=== PATIENT | female | born 1935 | race Caucasian/White ===

== ENCOUNTER 2016-10-03 17:11 | Emergency (ER) | payer MEDICARE, BC ==
[~2016-10-03] VITALS: Ht 170.2 cm; Wt 68.2 kg
[2016-10-03 17:12] VITALS: TEMP 99.8
[2016-10-03 17:56] LABS: HEMATOCRIT 40.7 % (37.0-47.0); HEMOGLOBIN 13.8 g/dl (12.5-16.0); MEAN CELL VOLUME 95 fl (80.0-100.0); MEAN CORPUSCULAR HEMOGLOBIN 32 pg (27.0-31.0); MEAN CORPUSCULAR HGB CONC 34 g/dl (33.0-37.0); MEAN PLATELET VOLUME 9.2 fl (7.4-10.4); PLATELET COUNT 143 K/mm3 (130-400); RED BLOOD COUNT 4.29 M/mm3 (4.10-5.30); REDCELL DISTRIBUTION WIDTH-CV 13.8 % (11.5-14.5); WHITE BLOOD COUNT 8.7 K/mm3 (4.8-10.8)
[2016-10-03 17:57] LABS: ADD PATHOLOGY DIFF REVIEW NO
[2016-10-03 18:06] LABS: PH 5 (5-8); URINE APPEARANCE Cloudy; URINE BACTERIA Rare /hpf; URINE BILIRUBIN Negative (NEGATIVE); URINE BLOOD 1+ (NEGATIVE); URINE COLOR Amber; URINE GLUCOSE Negative (NEGATIVE); URINE KETONE Negative (NEGATIVE); URINE UROBILINOGEN Negative (NEGATIVE)
[2016-10-03 18:10] LABS: URINE WBC >50 /hpf
[2016-10-03 18:10] LABS: PARTIAL THROMBOPLASTIN TIME 27.1 SECONDS (26.0-37.0)
[2016-10-03 18:11] LABS: INR 1.1 (0.8-3.0)
[2016-10-03 18:12] LABS: PROTHROMBIN TIME 11.7 SECONDS (9.7-12.8)
[2016-10-03 18:21] LABS: TROPONIN-I 0.018 ng/mL (0.000-0.034)
[2016-10-03 18:55] LABS: BAND 33 % (0-10); NEUTROPHILS 50 % (42.0-75.2); PLATELET ESTIMATE NORMAL (NORMAL); TOTAL CELLS COUNTED 100
[2016-10-03] MEDS ORDERED: ASPIRIN 81M81 MG/TA2 PO (19:13)
[2016-10-03] MEDS ORDERED: PLAVIX 75MG TAB75 MG PO (19:14)
[2016-10-03] MEDS ORDERED: PROTONIX 40MG T40 MG PO (19:14)
[2016-10-03] MEDS ORDERED: ARIMIDEX1 MG PO (19:14)
[2016-10-03] MEDS ORDERED: LIPITOR 80MG80 MG PO (19:14)
[2016-10-03] MEDS ORDERED: LOPRESSOR 550 MG/TAB PO (19:15)
[2016-10-03] MEDS ORDERED: CALCIUM 600MG+D1 TAB PO (19:15)
[2016-10-03] MEDS ORDERED: MULTI VITAMINS1 TAB PO (19:16)
[2016-10-03] MEDS ORDERED: OMEGA-3 1000 MG1 CAP PO (19:16)
[2016-10-03 20:19] LABS: TROPONIN-I 0.018 ng/mL (0.000-0.034)
[2016-10-03 20:21] LABS: ADJUSTED CALCIUM 9.1 mg/dL (8.4-10.2); ALBUMIN 4.1 gm/dL (3.5-5.0); BILIRUBIN,TOTAL 1.3 mg/dL (0.0-1.0); CALCIUM 9.2 mg/dL (8.4-10.2); CREATININE, serum 0.83 mg/dL (0.52-1.25); POTASSIUM 4.2 mmol/L (3.4-5.0); TOTAL PROTEIN 7.4 gm/dL (6.4-8.2)
[2016-10-03] MEDS ORDERED: CIPRO 500MG TA500 MG PO (20:33)
[2016-10-03 20:40] VITALS: BP 145/84; PULSE 79
== END 2016-10-03 20:44 | disposition home or self-care (01) ==
LOC: COL.ER 17:11
PROVIDERS: Emergency Medicine
DX: N39.0 Urinary tract infection, site not specified (principal); G45.9 Transient cerebral ischemic attack, unspecified; R79.89 Other specified abnormal findings of blood chemistry; I10 Essential (primary) hypertension; I25.10 Atherosclerotic heart disease of native coronary artery without angina pectoris; I25.2 Old myocardial infarction; R05 Cough; I69.351 Hemiplegia and hemiparesis following cerebral infarction affecting right dominant side
CPT/HCPCS: J0696; J1940; J7030

== ENCOUNTER 2016-10-03 21:43 | Inpatient (IN) | payer MEDICARE, BC ==
[~2016-10-03] VITALS: Ht 172.7 cm; Wt 62.8 kg
[~2016-10-03 21:43] MED LIST: ARIMIDEX1 MG PO; ASPIRIN 81M81 MG/TA2 PO; CALCIUM 600MG+D1 TAB PO; CIPRO 500MG TA500 MG PO; LIPITOR 80MG80 MG PO; LOPRESSOR 550 MG/TAB PO; MULTI VITAMINS1 TAB PO; OMEGA-3 1000 MG1 CAP PO; PLAVIX 75MG TAB75 MG PO; PROTONIX 40MG T40 MG PO
[2016-10-03 22:54] VITALS: BP 136/55; PULSE 75
[2016-10-04] VITALS (8 sets, daily range): BP systolic 86–123; BP diastolic 48–69; PULSE 47–75; TEMP 97.4–100.3
[2016-10-04 04:26] LABS: HEMOGLOBIN 12.6 g/dl (12.5-16.0); MEAN CELL VOLUME 93 fl (80.0-100.0); MEAN CORPUSCULAR HEMOGLOBIN 32 pg (27.0-31.0); MEAN CORPUSCULAR HGB CONC 35 g/dl (33.0-37.0); MEAN PLATELET VOLUME 9.2 fl (7.4-10.4); PLATELET COUNT 122 K/mm3 (130-400); RED BLOOD COUNT 3.94 M/mm3 (4.10-5.30); REDCELL DISTRIBUTION WIDTH-CV 13.5 % (11.5-14.5); WHITE BLOOD COUNT 8.3 K/mm3 (4.8-10.8)
[2016-10-04 04:27] LABS: ADD PATHOLOGY DIFF REVIEW NO; HEMATOCRIT 36.5 % (37.0-47.0)
[2016-10-04 04:36] LABS: CALCIUM 8.8 mg/dL (8.4-10.2); CREATININE, serum 0.87 mg/dL (0.52-1.25); POTASSIUM 3.4 mmol/L (3.4-5.0)
[2016-10-04 05:18] LABS: BAND 47 % (0-10); NEUTROPHILS 33 % (42.0-75.2); PLATELET ESTIMATE NORMAL (NORMAL); TOTAL CELLS COUNTED 100
[2016-10-05 03:30] VITALS: BP 130/64; PULSE 71; TEMP 97.8
[2016-10-05 07:47] VITALS: BP 136/66; PULSE 66; TEMP 97.8
[2016-10-05 07:52] LABS: BASO % 0.5 % (0.0-2.0); EOS # 0.2 (0.0-0.7); EOS % 3.9 % (0-4.0); GRAN # 4.2 (1.4-6.5); GRAN % 69.5 % (42.2-75.2); LYMPH # 1.2 (1.2-3.4); LYMPH % 18.9 % (20.0-51.0); MEAN CELL VOLUME 95 fl (80.0-100.0); MEAN CORPUSCULAR HEMOGLOBIN 32 pg (27.0-31.0); MEAN CORPUSCULAR HGB CONC 34 g/dl (33.0-37.0); MEAN PLATELET VOLUME 9.7 fl (7.4-10.4); MONO # 0.4 (0.1-0.6); MONO % 6.9 % (1.7-9.3); PLATELET COUNT 151 K/mm3 (130-400); RED BLOOD COUNT 3.79 M/mm3 (4.10-5.30); REDCELL DISTRIBUTION WIDTH-CV 13.5 % (11.5-14.5); WHITE BLOOD COUNT 6.1 K/mm3 (4.8-10.8)
[2016-10-05 07:56] LABS: HEMATOCRIT 35.8 % (37.0-47.0)
[2016-10-05 08:00] LABS: CALCIUM 8.8 mg/dL (8.4-10.2); CREATININE, serum 0.8 mg/dL (0.52-1.25); POTASSIUM 3.4 mmol/L (3.4-5.0)
[2016-10-05 11:55] VITALS: BP 121/76; PULSE 110; TEMP 98.1
[2016-10-05 16:29] VITALS: BP 138/98; PULSE 70; TEMP 98.7
[2016-10-05 20:25] VITALS: BP 148/64; PULSE 79; TEMP 98.3
[2016-10-05 22:49] VITALS: BP 144/62; PULSE 68; TEMP 98.2
[2016-10-06 03:57] VITALS: BP 144/63; PULSE 62; TEMP 98.5
[2016-10-06 07:23] VITALS: BP 137/80; PULSE 70; TEMP 98.4
[2016-10-06] MEDS ORDERED: CIPRO 500MG TA500 MG PO (08:56)
[2016-10-06] MEDS ORDERED: MUCINEX DM 30 M1 TE1 PO (08:59)
[2016-10-06 11:06] VITALS: BP 135/59; PULSE 60; TEMP 98.2
== END 2016-10-06 16:56 | disposition home or self-care (01) | DRG 690 ==
LOC: COL.ER 21:43 → MEDICAL 23:34
PROVIDERS: Internal Medicine Cardiovascular Disease; Physician Assistant
DX: N39.0 Urinary tract infection, site not specified (principal); I69.951 Hemiplegia and hemiparesis following unspecified cerebrovascular disease affecting right dominant side; I51.0 Cardiac septal defect, acquired; J20.9 Acute bronchitis, unspecified; F03.90 Unspecified dementia, unspecified severity, without behavioral disturbance, psychotic disturbance, mood disturbance, and anxiety; I25.2 Old myocardial infarction; R53.81 Other malaise; Z95.5 Presence of coronary angioplasty implant and graft
CPT/HCPCS: 99222-AI; 99232-AI; 99233-AI; 99239; A9284; J0696; J1650; J1940; J7030; J7040

== ENCOUNTER → 2016-12-23 | Outpatient (CLI) | payer MEDICARE, BC ==
[~2016-12-23] MED LIST changes: +MUCINEX DM 30 M1 TE1 PO
== END ==
LOC: MC.RAD 16:11
DX: Z12.31 Encounter for screening mammogram for malignant neoplasm of breast (principal)

== ENCOUNTER → 2018-01-05 | Outpatient (CLI) | payer MEDICARE, BC | LOC: MC.RAD 16:31 | DX: Z12.31 Encounter for screening mammogram for malignant neoplasm of breast (principal); Z98.890 Other specified postprocedural states ==

== ENCOUNTER 2018-03-29 14:15 | Emergency (ER) | payer MEDICARE, BC ==
[~2018-03-29] VITALS: Ht 167.6 cm; Wt 81.8 kg
[2018-03-29 14:29] LABS: BASO % 0.6 % (0.0-2.0); EOS # 0.2 (0.0-0.7); EOS % 2.4 % (0-4.0); GRAN # 4.6 (1.4-6.5); GRAN % 68.4 % (42.2-75.2); HEMATOCRIT 39.5 % (37.0-47.0); HEMOGLOBIN 13.4 g/dl (12.5-16.0); LYMPH # 1.2 (1.2-3.4); LYMPH % 17.7 % (20.0-51.0); MEAN CELL VOLUME 97 fl (80.0-100.0); MEAN CORPUSCULAR HEMOGLOBIN 33 pg (27.0-31.0); MEAN CORPUSCULAR HGB CONC 34 g/dl (33.0-37.0); MEAN PLATELET VOLUME 8.9 fl (7.4-10.4); MONO # 0.7 (0.1-0.6); MONO % 10.7 % (1.7-9.3); PLATELET COUNT 172 K/mm3 (130-400); RED BLOOD COUNT 4.09 M/mm3 (4.10-5.30); REDCELL DISTRIBUTION WIDTH-CV 13.5 % (11.5-14.5)
[2018-03-29 14:34] VITALS: TEMP 98.4
[2018-03-29 14:35] LABS: INR 1.1 (0.8-3.0); PROTHROMBIN TIME 12.2 SECONDS (9.7-12.8)
[2018-03-29 14:41] LABS: ALBUMIN 3.9 gm/dL (3.5-5.0); BILIRUBIN,TOTAL 1.3 mg/dL (0.0-1.0); C-REACTIVE PROTEIN 1.2 mg/dL (0.0-0.9); CALCIUM 9.5 mg/dL (8.4-10.2); CREATININE, serum 1.14 mg/dL (0.52-1.25); POTASSIUM 4.4 mmol/L (3.4-5.0)
[2018-03-29 16:12] VITALS: BP 124/59; PULSE 70
== END 2018-03-29 16:13 | disposition home or self-care (01) ==
LOC: COL.ER 14:15
PROVIDERS: Family Medicine
DX: G45.9 Transient cerebral ischemic attack, unspecified (principal); Z79.82 Long term (current) use of aspirin; Z79.02 Long term (current) use of antithrombotics/antiplatelets
CPT/HCPCS: J2405; J7040

== ENCOUNTER 2018-04-01 12:33 | Inpatient (IN) | payer MEDICARE, BC ==
[~2018-04-01] VITALS: Ht 167.6 cm; Wt 79.6 kg
[2018-04-01 13:53] LABS: BASO % 0.5 % (0.0-2.0); EOS # 0.1 (0.0-0.7); GRAN # 4.3 (1.4-6.5); GRAN % 71.7 % (42.2-75.2); HEMOGLOBIN 12.2 g/dl (12.5-16.0); LYMPH # 0.8 (1.2-3.4); LYMPH % 13.5 % (20.0-51.0); MEAN CELL VOLUME 98 fl (80.0-100.0); MEAN CORPUSCULAR HEMOGLOBIN 33 pg (27.0-31.0); MEAN CORPUSCULAR HGB CONC 34 g/dl (33.0-37.0); MEAN PLATELET VOLUME 9.1 fl (7.4-10.4); MONO # 0.7 (0.1-0.6); PLATELET COUNT 170 K/mm3 (130-400); RED BLOOD COUNT 3.67 M/mm3 (4.10-5.30); REDCELL DISTRIBUTION WIDTH-CV 13.4 % (11.5-14.5)
[2018-04-01 14:02] LABS: ALBUMIN 3.7 gm/dL (3.5-5.0); BILIRUBIN,TOTAL 0.8 mg/dL (0.0-1.0); CREATININE, serum 0.89 mg/dL (0.52-1.25); POTASSIUM 4.3 mmol/L (3.4-5.0); TOTAL PROTEIN 6.8 gm/dL (6.4-8.2)
[2018-04-01 14:08] LABS: HEMATOCRIT 35.9 % (37.0-47.0)
[2018-04-01] MEDS ORDERED: SYNTHROID 0.0.025 MG PO (14:56)
[2018-04-01] MEDS ORDERED: PROTONIX 40MG T40 MG PO (14:56)
[2018-04-01] MEDS ORDERED: PLAVIX 75MG TAB75 MG PO (15:00)
[2018-04-01] MEDS ORDERED: OCEAN NASAL SPR45 ML NS (15:01)
[2018-04-01] MEDS ORDERED: COLACE 100100 MG/CAP PO (15:01)
[2018-04-01 17:48] VITALS: BP 158/72; PULSE 75; TEMP 98.6
[2018-04-01 19:19] VITALS: BP 142/66; PULSE 77; TEMP 98.8
[2018-04-02] VITALS (7 sets, daily range): BP systolic 119–144; BP diastolic 49–72; PULSE 47–84; TEMP 97.9–100
[2018-04-02 08:12] LABS: HEMATOCRIT 37.6 % (37.0-47.0); HEMOGLOBIN 12.5 g/dl (12.5-16.0); MEAN CELL VOLUME 97 fl (80.0-100.0); MEAN CORPUSCULAR HEMOGLOBIN 32 pg (27.0-31.0); MEAN CORPUSCULAR HGB CONC 33 g/dl (33.0-37.0); MEAN PLATELET VOLUME 9.3 fl (7.4-10.4); PLATELET COUNT 176 K/mm3 (130-400); RED BLOOD COUNT 3.87 M/mm3 (4.10-5.30); REDCELL DISTRIBUTION WIDTH-CV 13.3 % (11.5-14.5)
[2018-04-02 08:18] LABS: CREATININE, serum 0.81 mg/dL (0.52-1.25); POTASSIUM 3.8 mmol/L (3.4-5.0)
[2018-04-02 13:03] LABS: BAND 31 % (0-10); LYMPHOCYTE 9 % (20.0-51.0); NEUTROPHILS 53 % (42.0-75.2); PLATELET ESTIMATE NORMAL (NORMAL)
[2018-04-03 00:21] VITALS: BP 122/60; PULSE 76; TEMP 99.1
[2018-04-03 04:02] VITALS: BP 109/69; PULSE 86; TEMP 99.4
[2018-04-03 06:08] LABS: BASO % 0.6 % (0.0-2.0); EOS # 0.1 (0.0-0.7); GRAN # 5.1 (1.4-6.5); GRAN % 72.7 % (42.2-75.2); HEMATOCRIT 38.4 % (37.0-47.0); LYMPH % 14.7 % (20.0-51.0); MEAN CELL VOLUME 96 fl (80.0-100.0); MEAN CORPUSCULAR HEMOGLOBIN 32 pg (27.0-31.0); MEAN CORPUSCULAR HGB CONC 34 g/dl (33.0-37.0); MEAN PLATELET VOLUME 9.5 fl (7.4-10.4); MONO # 0.7 (0.1-0.6); MONO % 10.7 % (1.7-9.3); PLATELET COUNT 179 K/mm3 (130-400); RED BLOOD COUNT 4.02 M/mm3 (4.10-5.30); REDCELL DISTRIBUTION WIDTH-CV 13.2 % (11.5-14.5)
[2018-04-03 06:17] LABS: CALCIUM 9.2 mg/dL (8.4-10.2); CREATININE, serum 0.99 mg/dL (0.52-1.25); POTASSIUM 3.8 mmol/L (3.4-5.0)
[2018-04-03 08:17] VITALS: BP 105/58; PULSE 71; TEMP 99.2
[2018-04-03 09:43] LABS: ARTERIAL BLD GAS O2 SATURATION 89.3 % (92-100); ARTERIAL BLD GAS TCO2 CT 29.9; ARTERIAL BLOOD GAS BASE EXCESS 3.5 (-2-2); ARTERIAL BLOOD GAS HCO3 28.5 meq/L (22-26); ARTERIAL BLOOD GAS PCO2 44.7 mmHg (35-45); ARTERIAL BLOOD GAS PO2 58.2 mmHg (80-100); ARTERIAL BLOOD GAS pH 7.42 (7.35-7.45)
[2018-04-03 11:31] VITALS: BP 100/58; PULSE 77; TEMP 98.2
[2018-04-03 16:26] VITALS: BP 115/56; PULSE 79; TEMP 97.5
[2018-04-03 20:35] VITALS: BP 116/57; PULSE 96; TEMP 97.8
[2018-04-04] VITALS (8 sets, daily range): BP systolic 103–149; BP diastolic 49–82; PULSE 68–80; TEMP 97.9–98.4
[2018-04-04 07:17] LABS: HEMATOCRIT 38.4 % (37.0-47.0); HEMOGLOBIN 13.2 g/dl (12.5-16.0); MEAN CELL VOLUME 94 fl (80.0-100.0); MEAN CORPUSCULAR HEMOGLOBIN 32 pg (27.0-31.0); MEAN CORPUSCULAR HGB CONC 34 g/dl (33.0-37.0); MEAN PLATELET VOLUME 9.4 fl (7.4-10.4); PLATELET COUNT 186 K/mm3 (130-400); RED BLOOD COUNT 4.07 M/mm3 (4.10-5.30); REDCELL DISTRIBUTION WIDTH-CV 12.9 % (11.5-14.5)
[2018-04-04 07:28] LABS: CALCIUM 9.4 mg/dL (8.4-10.2); CREATININE, serum 1.14 mg/dL (0.52-1.25)
[2018-04-04 07:59] LABS: BAND 14 % (0-10); LYMPHOCYTE 18 % (20.0-51.0); METAMYELOCYTE 2 % (0-0); NEUTROPHILS 58 % (42.0-75.2); PLATELET ESTIMATE NORMAL (NORMAL)
[2018-04-04 08:00] LABS: HYPOCHROMIA 1+
[2018-04-04 13:30] LABS: COLLECTION METHOD CLEAN CATCH
[2018-04-04 13:42] LABS: MUCOUS Present /lpf; PH 5 (5-8); URINE APPEARANCE Turbid; URINE BACTERIA Many /hpf; URINE BILIRUBIN Negative (NEGATIVE); URINE BLOOD 1+ (NEGATIVE); URINE COLOR Amber; URINE GLUCOSE Negative (NEGATIVE); URINE KETONE Negative (NEGATIVE); URINE LEUKOCYTE ESTERASE 3+ (NEGATIVE); URINE NITRATE Negative (NEGATIVE); URINE PROTEIN(semi-quant) 2+ (NEGATIVE)
[2018-04-05 00:11] VITALS: BP 126/65; PULSE 90; TEMP 98.3
[2018-04-05 03:35] VITALS: BP 132/72; PULSE 86; TEMP 98.2
[2018-04-05 04:16] VITALS: BP 112/58; PULSE 91
[2018-04-05 11:56] VITALS: BP 91/44; PULSE 112; TEMP 98.1
[2018-04-05 16:25] VITALS: BP 117/57; PULSE 80; TEMP 98
[2018-04-05 21:36] VITALS: BP 126/101; PULSE 78; TEMP 97.5
[2018-04-06] VITALS: BP 122/55; PULSE 74; TEMP 97.9
[2018-04-06 03:49] VITALS: BP 139/63; PULSE 70; TEMP 97
[2018-04-06 07:27] LABS: HEMOGLOBIN 12.5 g/dl (12.5-16.0); MEAN CELL VOLUME 97 fl (80.0-100.0); MEAN CORPUSCULAR HEMOGLOBIN 33 pg (27.0-31.0); MEAN CORPUSCULAR HGB CONC 34 g/dl (33.0-37.0); MEAN PLATELET VOLUME 9.3 fl (7.4-10.4); PLATELET COUNT 221 K/mm3 (130-400); RED BLOOD COUNT 3.81 M/mm3 (4.10-5.30); REDCELL DISTRIBUTION WIDTH-CV 13.2 % (11.5-14.5)
[2018-04-06 07:39] LABS: CALCIUM 9.3 mg/dL (8.4-10.2); CREATININE, serum 0.93 mg/dL (0.52-1.25); POTASSIUM 4.2 mmol/L (3.4-5.0)
[2018-04-06 07:55] VITALS: BP 159/81; PULSE 79; TEMP 98.1
[2018-04-06 08:29] LABS: BAND 9 % (0-10); LYMPHOCYTE 15 % (20.0-51.0); NEUTROPHILS 69 % (42.0-75.2); PLATELET ESTIMATE NORMAL (NORMAL)
[2018-04-06] MEDS ORDERED: IPRATROPIUM BROM3 M1 IH (09:45)
[2018-04-06] MEDS ORDERED: CEFTRIAXON1 GM/50 M1 IV (09:45)
[2018-04-06] MEDS ORDERED: ELIQUIS 5MG PO (09:45)
[2018-04-06] MEDS ORDERED: CARDIZEM CD 12120 MG PO (09:46)
[2018-04-06] MEDS ORDERED: ROBITUSSIN DM 105 ML PO (09:46)
[2018-04-06] MEDS ORDERED: PREDNISONE20 MG PO (09:46)
[2018-04-06] MEDS ORDERED: OMNICEF 300MG300 MG PO (10:34)
[2018-04-06 12:19] VITALS: BP 159/81; PULSE 79; TEMP 98.1
== END 2018-04-06 13:35 | DRG 202 ==
LOC: COL.ER 12:33 → MEDICAL 15:07
PROVIDERS: Emergency Medicine; Internal Medicine; Nurse Practitioner Family; Physician Assistant
DX: J20.5 Acute bronchitis due to respiratory syncytial virus (principal); I50.30 Unspecified diastolic (congestive) heart failure; N39.0 Urinary tract infection, site not specified; I48.91 Unspecified atrial fibrillation; Z86.73 Personal history of transient ischemic attack (TIA), and cerebral infarction without residual deficits; I25.10 Atherosclerotic heart disease of native coronary artery without angina pectoris; Z95.5 Presence of coronary angioplasty implant and graft; Z85.3 Personal history of malignant neoplasm of breast
CPT/HCPCS: 99222-AI; 99232-AI; 99233-AI; 99239; A4216; G8987-GO; G8988-GO; J0696; J1650; J1940; J7030; J7512

== ENCOUNTER 2018-04-30 10:44 | Emergency (ER) | payer MEDICARE, BC ==
[~2018-04-30] VITALS: Ht 167.6 cm; Wt 75.0 kg
[~2018-04-30 10:44] MED LIST changes: +CARDIZEM CD 12120 MG PO; +CEFTRIAXON1 GM/50 M1 IV; +COLACE 100100 MG/CAP PO; +ELIQUIS 5MG PO; +IPRATROPIUM BROM3 M1 IH; +OCEAN NASAL SPR45 ML NS; +OMNICEF 300MG300 MG PO; +PREDNISONE20 MG PO; +ROBITUSSIN DM 105 ML PO; +SYNTHROID 0.0.025 MG PO
[2018-04-30 10:54] VITALS: TEMP 98
[2018-04-30 12:08] LABS: BASO # 0.1 (0.0-0.2); EOS # 0.4 (0.0-0.7); EOS % 7.3 % (0-4.0); GRAN % 66.5 % (42.2-75.2); HEMATOCRIT 41.6 % (37.0-47.0); HEMOGLOBIN 13.6 g/dl (12.5-16.0); LYMPH # 0.9 (1.2-3.4); LYMPH % 14.2 % (20.0-51.0); MEAN CELL VOLUME 98 fl (80.0-100.0); MEAN CORPUSCULAR HEMOGLOBIN 32 pg (27.0-31.0); MEAN CORPUSCULAR HGB CONC 33 g/dl (33.0-37.0); MEAN PLATELET VOLUME 8.9 fl (7.4-10.4); MONO # 0.6 (0.1-0.6); MONO % 10.7 % (1.7-9.3); PLATELET COUNT 215 K/mm3 (130-400); RED BLOOD COUNT 4.26 M/mm3 (4.10-5.30); REDCELL DISTRIBUTION WIDTH-CV 14.5 % (11.5-14.5)
[2018-04-30 12:43] LABS: ALBUMIN 3.6 gm/dL (3.5-5.0); BILIRUBIN,TOTAL 0.5 mg/dL (0.0-1.0); CALCIUM 9.2 mg/dL (8.4-10.2); CREATININE, serum 0.89 mg/dL (0.52-1.25); POTASSIUM 4.6 mmol/L (3.4-5.0); TOTAL PROTEIN 6.5 gm/dL (6.4-8.2)
[2018-04-30 13:56] VITALS: BP 120/80; PULSE 82
== END 2018-04-30 13:58 | disposition home or self-care (01) ==
LOC: COL.ER 10:44
PROVIDERS: Emergency Medicine
DX: G45.9 Transient cerebral ischemic attack, unspecified (principal); I25.10 Atherosclerotic heart disease of native coronary artery without angina pectoris; Z86.73 Personal history of transient ischemic attack (TIA), and cerebral infarction without residual deficits; Z79.02 Long term (current) use of antithrombotics/antiplatelets; Z79.82 Long term (current) use of aspirin; Z95.5 Presence of coronary angioplasty implant and graft
CPT/HCPCS: J7050

== ENCOUNTER → 2020-11-30 | Outpatient (CLI) | payer MEDICARE, BC | LOC: ZCOL.LAB 11:54 | DX: U07.1 COVID-19 (principal) ==